=== PATIENT | male | born 1980 | race Caucasian/White ===

== ENCOUNTER 2016-11-07 08:57 | Observation (INO) | payer SELFPAY ==
--- NOTE | ~2016-11-07 | HP ---
History And Physical [facility] [address] [place]. [address] NAME: WENDY HAHN : 82 STATUS : ADM Klever PAT#: [id number] AGE: 36 ADM/REG DATE : 11/07/16 MR#: [id number] REPORT SERV DATE: 11/07/16 DICTATED BY: SORIN STRINGER DATE: 11/07/16 REPORT STATUS : Draft TRANSCRIBED BY: MODHerrera DATE: 11/07/16 DATE OF ADMISSION: 11/07/2016 HISTORY OF PRESENT ILLNESS: The patient is a 36-year-old male, who presented to [facility] Emergency Room complaining of dizziness. He had an episode of loss of consciousness secondary to heat exposure, he was working outside in a very warm environment. He is complaining of total body aches and tenderness in his lower extremities, in the arms, legs, and back. He said he had some muscle jerking as well. He denies any chest pain. No shortness of breath. No fever. No rash. No headaches. All 14-point review of systems done and negative except what stated in the history of present illness. The patient reported that he was working in the very warm environment outside, then he suddenly got dizzy, dehydrated, and he felt like he may lose his consciousness, but he did not hit his head or anywhere else. He just sat down and he regained his consciousness immediately, and he said that he was drinking a lot of fluids. He had one episode of nausea and vomiting yesterday, but yesterday in the evening, he was drinking a lot of fluids as well as he took several ibuprofen and Goody Powders. He decided to come to the hospital today and he was started on IV fluid hydration in the emergency room. PAST MEDICAL HISTORY: Per the patient's report, he had a normal kidney function before. He does not have a primary care doctor, he does not see him. He has a history of heart attack according to the patient four or five years ago when he was hospitalized in [facility]. I asked him if he had any procedures or evaluations, he could not give me any answers. He does not see a crtts and does not see anybody else. He did not have any surgeries in the past. He has a history of hypertension. SURGICAL HISTORY: No surgeries. SOCIAL HISTORY: He denies use of alcohol. He smokes one pack per day. He uses marijuana occasionally. He denies any other recreational drugs. His girlfriend is at the bedside. FAMILY HISTORY: Mother is healthy. Father has a blood pressure problem. ALLERGIES: HE IS ALLERGIC TO LEVAQUIN. MEDICATIONS: At home, he takes Goody Powders, Zantac, and ibuprofen as needed. PHYSICAL EXAMINATION: GENERAL: Well-nourished well-developed male, not in acute distress. Resting quietly. VITAL SIGNS: Blood pressure 171/90, temperature 97.3, heart rate 102, respiratory rate 24, and oxygen saturation 100% on room air. HEENT: Head atraumatic, normocephalic. Conjunctivae clear. Pupils are equal and reactive to light and accommodation. Extraocular muscles are intact. NECK: Supple. Trachea is midline. No supraclavicular or cervical lymphadenopathy. LUNGS: Clear to auscultation bilaterally. Normal respiratory effort. CARDIOVASCULAR SYSTEM: Regular rate and rhythm. Point of maximal impulse not displaced. ABDOMEN: Soft, nontender, nondistended. Positive normoactive bowel sounds. History And Physical [address] [address] NAME: WENDY HAHN : [birth year] STATUS : ADM Klever PAT#: [id number] AGE: 36 ADM/REG DATE : 11/07/16 MR#: [id number] REPORT SERV DATE: 11/07/16 DICTATED BY: SORIN STRINGER DATE: 11/07/16 REPORT STATUS : Draft TRANSCRIBED BY: FELICIANO DATE: 11/07/16 EXTREMITIES: No clubbing, cyanosis, or edema. SKIN: Normal color, slightly decreased turgor. PSYCHIATRIC: Anxious mood and affect. LABORATORY RESULTS: ABG showed pH of 7.44, pCO2 of 30, pO2 of 103, his bicarbonate 19.7, and oxygen saturation 98% on room air. Sodium 136, potassium 4.2, chloride 103, carbon dioxide 29, BUN 33, creatinine 2.07, blood sugar 96. CPK 1013. Myoglobin level 294. Lactate was 1.4. White count 11.7, hemoglobin 16.6, hematocrit 46.4, and a platelet count of 257. UA showed hazy urine, no evidence of UTI. ASSESSMENT AND PLAN: This is a 36-year-old male who presented to the [facility] status post heat exposure and an episode of syncopal/presyncopal episode secondary to dehydration, was found to be in: 1. Rhabdomyolysis secondary to dehydration and being under the warm environment. 2. Acute kidney injury secondary to rhabdomyolysis and also recent use of nonsteroidal antiinflammatories. 3. Hypertension. 4. Questionable history of heart attack according to the patient in the past, asymptomatic currently. We will put the patient under observation status. The patient is already started on IV fluids. His CPK as I dictated above is elevated. We will continue IV fluids and check his CPK in the morning. 5. Regarding acute kidney injury, I told the patient to avoid nonsteroidal antiinflammatories and Goody Powders, and we will check his kidney ultrasound. We will ask Nephrology to see him, and we will recheck kidney function tomorrow. 6. Questionable history of heart attack in the past, currently asymptomatic. We will monitor him closely. We will check baseline EKG. We will ask for some records from [facility]. He said it was there. He was told that he may have a heart attack four or five years ago in [facility]. Right now, he does not have any symptoms. MG/MODL Sorin Stringer M.D. / [id number] CC: NO PCP
--- NOTE | ~2016-11-07 | CN ---
Consultation Report [facility] [address] [place]. [address] NAME: WENDY HAHN : 82 STATUS : ADM Klever PAT#: [id number] AGE: 36 ADM/REG DATE : 11/07/16 MR#: [id number] REPORT SERV DATE: 11/07/16 DICTATED BY: DATE: REPORT STATUS : Draft TRANSCRIBED BY: MODL DATE: 11/07/16 CONSULTATION DATE OF CONSULTATION: REASON FOR CONSULTATION: Acute kidney injury. HISTORY OF PRESENT ILLNESS: Mr. Hahn is a 36-year-old white male, who denies any history of kidney disease in the past. He does have a history of hypertension, but does not take medications as he does not follow with a primary care. He presents to the hospital after getting dizzy, having muscle cramps, and spasms. He states his hands and feet were drawing up and then had what sounds like a syncopal episode. In the emergency room, he was found to have a creatinine of 2. He has also a drug screen positive for amphetamines. When asked him in regard to the use of this, he states that he does not use regularly, but did over the weekend. He use amphetamine in the form of inhaled substance, he smoked it with marijuana. He does partake of marijuana regularly. He also uses ibuprofen, Goody'd powders, and Zantac on a daily basis. He denies any dysuria or hematuria. He has had one episode of nausea, vomiting. No diarrhea. No unusual rash or skin lesions. No shortness of breath, chest pain, tightness, pressure. PAST MEDICAL HISTORY: He states, he had an RI several years back that was diagnosed in [place] and has hypertension. 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 Denies any alcohol use. ALLERGIES: LEVAQUIN. MEDICATIONS: Goody's Powder, Zantac, and ibuprofen p.r.n. Continues to be on atenolol for blood pressure. FAMILY MEDICAL HISTORY: No kidney disease. REVIEW OF SYSTEMS: 12-point review of systems obtained, negative with the exception that in HPI. PHYSICAL EXAMINATION: VITAL SIGNS: Temp 97.9, blood pressure 148/93, pulse 96, respiratory rate 20, O2 saturation is 96%. GENERAL: This is a pleasant, cooperative, white male. He is awake, alert, and oriented x3. No acute distress. Answers questions appropriately. HEENT: Normocephalic, atraumatic. Conjunctivae clear. Sclerae anicteric. Pupils are equal and round. Oral mucosa is moist. NECK: Supple. Carotids are brisk. Neck veins flat. No lymphadenopathy. Consultation Report [address] [place]. [address] NAME: WENDY HAHN : 82 STATUS : ADM Klever PAT#: [id number] AGE: 36 ADM/REG DATE : 11/07/16 MR#: [id number] REPORT SERV DATE: 11/07/16 DICTATED BY: DATE: REPORT STATUS : Draft TRANSCRIBED BY: MODL DATE: 11/07/16 LUNGS: Respirations even and unlabored. Breath sounds clear to auscultation. HEART: Rate is regular, but increased slightly, and no murmur, rub, or gallop. ABDOMEN: Soft, nontender. Bowel sounds active. No masses. No hepatosplenomegaly. No bruits. No CVA tenderness. BACK: Within normal limits. EXTREMITIES: No edema, cyanosis, or clubbing. SKIN: Warm, dry, and intact. No unusual rash or skin lesions. NEURO: No focal deficits. Mood and affect, pleasant and appropriate. PERTINENT LABS AND X-RAYS: Drug screen positive for cannabinoids and amphetamines. ABG with a pH of 7.44, pCO2 of 30, pO2 of 103. Sodium 136, potassium 4.2, chloride 103, CO2 of 29, BUN of 33, creatinine of 2.0, calcium of 9.5. LFTs are unremarkable. CPK elevated , myoglobin 294. UA, moderate amount of blood on dipstick only two red blood cells per high-power field. WBCs 60800, H and H 15 and 46, platelets 257,000. IMPRESSION: 1. Acute kidney injury. 2. Dizziness. 3. Hypertension. 4. Amphetamine use. 5. Mildly elevated CPK. PLAN/RECOMMENDATION: Acute kidney injury in the setting of amphetamines and dehydration. Agree with hydration. Follow labs, I's and O's. We will follow up on the renal ultrasound that was ordered. This should improve with just hydration. I do not see any need to do any further workup unless kidney function does not improve. We will follow along with you. Thank you for the consultation. Avoid further nonsteroidals and again I have talked to the patient about avoiding amphetamines. PAYAL/MODL YVONNE Salazar / [id number] CC: Gonzalez Kate M.D.
--- NOTE | ~2016-11-07 | DS ---
Discharge Summary [facility] [id number] [place]. [address] NAME: WENDY HAHN : 82 STATUS : DIS Klever PAT#: [id number] AGE: 36 ADM/REG DATE : 11/07/16 MR#: [id number] REPORT SERV DATE: 11/08/16 DICTATED BY: SORIN STRINGER DATE: 11/08/16 REPORT STATUS : Draft TRANSCRIBED BY: FELICIANO DATE: 11/08/16 ADMISSION DATE: 11/07/2016 DISCHARGE DATE: 11/07/2016 Note about the patient leaving against medical advice. DATE OF LEAVING AGAINST MEDICAL ADVICE: 11/07/2016, at night at 10:30 p.m. Mr. Hahn is a 36-year-old male who was admitted by me on 11/07/2016, because of dehydration, pain all over, and acute kidney injury secondary to rhabdomyolysis. The patient was started on IV fluid hydration. He was explained that he should stay away from heat since he became dehydrated and developed rhabdomyolysis as well as his urine drug screen was checked and it was positive for amphetamine and also it was positive for cannabinoids and the patient was seen by cage tender as well and he recommended to continue IV fluid hydration. It was recommended for the patient to stay in the hospital to check kidney function next day. After I finished shift and left during nighttime, the patient asked the nurse, Manuel Manzo, if he can go outside to the lobby and come back and he signed the form that he will leave against medical advice floor and will come back, so nurse let him to do it and the patient left the floor and according to the nurse's report, he never came back. His IV was removed according to nurse's report and was on a table and heart monitor was removed. The patient left all his belongings according to the report of the nurse, Manuel Manzo "Sophia was called at 2230". The patient left against medical advice. DICTATED BY: Leila Lockett/FELICIANO Sorin Stringer M.D. / [id number] CC: Gonzalez Kate M.D.
[2016-11-07 09:53] LABS: BASOPHILS 0.2 %; BASOPHILS ABSOLUTE 0.02 10/3/uL (0.0-0.16); EOSINOPHILS 1.4 %; EOSINOPHILS ABSOLUTE 0.17 10/3/uL (0.0-0.53); ER CBC TAT 0 Hrs 05 Mins; HEMATOCRIT 46.4 % (40.0-51.0); HEMOGLOBIN 16.6 g/dL (13.6-17.8); IMMATURE GRANULOCYTES 0.3 %; IMMATURE GRANULOCYTES ABSOLUTE 0.04 10/3/uL (0.0-0.11); LYMPHOCYTES 19.6 %; MANUAL DIFF NO %; MEAN CORPUS HGB CONC 35.8 g/dL (32.0-36.0); MEAN CORPUSCULAR HEMOGLOB 32.9 pg (26.0-34.0); MEAN CORPUSCULAR VOLUME 91.9 fL (80-100); MEAN PLATELET VOLUME 10.1 fL (9.2-13.0); MONOCYTES ABSOLUTE 1.76 10/3/uL (0.21-1.20); NEUTROPHILS 63.5 %; NEUTROPHILS ABSOLUTE 7.45 10/3/uL (2.02-8.40); PLATELET COUNT 257 10/3/uL (150-400); RBC DISTRIBUTION WIDTH 13.6 % (12.0-16.0); RED CELL COUNT 5.05 10/6/uL (4.7-6.1); WHITE BLOOD CELLS 11.7 10/3/uL (4.5-10.5)
[2016-11-07 10:13] LABS: ASCORBIC ACID (UR NOT ORDER) NEG (NEG); BILIRUBIN, URINE NEGATIVE (NEG); ER URINALYSIS TAT 0 Hrs 25 Mins; KETONE, URINE NEGATIVE (NEG); LEUKOCYTE ESTERASE(NOT OR NEG (NEG); NITRITE (URINE) NEG (NEG); WBC (NOT ORDERED) (RFLEX) 1 (0-5)
[2016-11-07 10:14] LABS: LACTATE 1.4 MMOL/L (0.3-2.4)
[2016-11-07 10:26] LABS: A/G RATIO 1.1 (0.7-1.9); ALBUMIN 4.4 G/DL (3.5-5.0); ALKALINE PHOSPHATASE 34 U/L (45-117); BUN (BLOOD UREA NITROGEN) 33 MG/DL (6-23); CALCIUM, SERUM 9.5 MG/DL (8.5-10.4); CHLORIDE, SERUM 103 MMOL/L (96-112); CO2 (CARBON DIOXIDE) 29 MMOL/L (24-34); CPK (IF ELEVATED MB BANDS) 1013 U/L (0-200); CREATININE 2.07 MG/DL (0.70-1.30); GFR AFRICAN AMERICAN 47 ML/MIN (>=60); GFR NON AFRICAN AMERICAN 40 ML/MIN (>=60); GLOBULIN 4.1 G/DL (2.5-4.1); GLUCOSE, SERUM 96 MG/DL (60-99); MYOGLOBIN, SERUM 294 NG/ML (0-85); POTASSIUM, SERUM 4.2 MMOL/L (3.5-5.3); SGOT(AST) 32 U/L (5-40); SGPT(ALT) 30 U/L (5-65); SODIUM, SERUM 136 MMOL/L (135-148); TOTAL BILIRUBIN 0.8 MG/DL (0-1.2); TOTAL PROTEIN 8.5 G/DL (6.0-8.5)
[2016-11-07] MEDS ORDERED: *DENIES (10:37)
[2016-11-07 10:39] LABS: CK-MB 10.1 NG/ML
[2016-11-07 10:51] LABS: ALLENS TEST Pos; BE (BASE EXCESS) -3.2 MEQ/L (0 +/- 2.5); HCO3 (ACTUAL BICARBONATE) 19.7 MEQ/L (23-27); INSTRUMENT SERIAL # 8087; PCO2 (CO2 TENSION) 30 MMHG (35-45); PO2 (O2 TENSION) 103 MMHG (79-93); SAMPLE Arterial; pH 7.44 (7.37-7.43)
[2016-11-07 12:37] LABS: AMPHETAMINES (NOT ORD) POS (NEG); BARBITURATES (NOT ORDERED NEG (NEG); BENZODIAZEPINES (NOT ORD) NEG (NEG); CANNABINOIDS (THC) POS (NEG); COCAINE (NOT ORDERED) NEG (NEG); OPIATES NEG (NEG); PHENCYCLIDINE(PCP) NEG (NEG)
[2016-11-07 12:38] LABS: TRICYCLICS NEG (NEG)
== END 2016-11-07 22:51 | disposition left against medical advice (07) ==
LOC: ER 08:57 → 2SO 11:34
PROVIDERS: Hospitalist
DX: R55 Syncope and collapse (principal); M62.82 Rhabdomyolysis; N17.9 Acute kidney failure, unspecified; E86.0 Dehydration; I25.2 Old myocardial infarction; I10 Essential (primary) hypertension; F17.210 Nicotine dependence, cigarettes, uncomplicated; Z88.8 Allergy status to other drugs, medicaments and biological substances; Z79.899 Other long term (current) drug therapy; E78.00 Pure hypercholesterolemia, unspecified; Z53.21 Procedure and treatment not carried out due to patient leaving prior to being seen by health care provider
CPT/HCPCS: 36600; 76775; 80053; 80305; 81001; 82550; 82553; 82805; 83605; 83874; 85025; 93005; 96374; 99284; G0378; J2405